=== PATIENT | female | born 1980 | race Caucasian/White ===

== ENCOUNTER 2022-02-16 23:08 | Observation (INO) ==
[2022-02-16] MEDS ORDERED: fentaNYL citrate 100 MCG/2 ML VIAL IV STA (23:25)
--- NOTE | 2022-02-16 23:31 | Emergency Department Note ---
History of Present Illness General Chief complaint: Chest Pain Stated complaint: CHEST TIGHTNESS Time Seen by Provider: 02/16/22 23:17 History of Present Illness Maximum Pain Intensity: 8 41-year-old female presents emergency department with an onset of chest pain that started at 10 PM this evening while she was doing an activity with her son. She states that she had substernal chest pressure that was nonradiating with associated shortness of breath dizziness and nausea. Patient states that she is under a lot of stress due to an illness with her . Patient does not know whether this was anxiety or panic attack however she was given aspirin 324 mg to sublingual nitro and Zofran by EMS prior to arrival. She states that she still has heaviness to the chest that is nonradiating. There are no other mitigating or alleviating factors. Patient has no prior history of cardiac disease. Home Medications Medication Instructions Recorded Confirmed Type amlodipine 10 mg tablet 10 mg PO DAILY 30 Days #30 tab 01/26/21 02/17/22 Rx hydrochlorothiazide 12.5 mg tablet 12.5 mg PO DAILY 30 Days #30 tab 01/26/21 02/17/22 Rx hydroxyzine pamoate 25 mg capsule 25 mg PO TID PRN 30 Days #90 cap 01/26/2101/21 Rx losartan 50 mg tablet 75 mg PO DAILY 30 Days #45 tab 01/26/21 02/17/22 Rx pen needle, diabetic 29 gauge x 01/26/21 02/17/22 History 1/2" (BD Ultra-Fine Original Pen Needle) simvastatin 20 mg tablet 20 mg PO HS 30 Days #30 tab 01/26/21 02/17/22 Rx liothyronine 5 mcg tablet 5 mcg PO DAILY tab 05/25/21 02/17/22 History omeprazole 40 mg capsule,delayed 40 mg PO DAILY 05/25/21 02/17/22 History release gabapentin 100 mg capsule 100 mg PO DAILY 05/30/21 02/17/22 History metformin 500 mg tablet,extended 1,000 mg PO BID tab 05/30/21 02/17/22 History release 24 hr acetone (urine) test (Ketostix) #25 ea 06/20/21 02/17/22 Rx levothyroxine 200 mcg tablet 400 mcg PO DAILYBB 30 Days #60 tab 10/22/21 02/17/22 Rx MDD 400mcg insulin aspart U-100 100 unit/mL 15 - 30 unit SUBCUT TIDM 02/17/22 02/17/22 History (3 mL) subcutaneous pen insulin glargine 100 unit/mL (3 50 unit SUBCUT PM 02/17/22 02/17/22 History mL) subcutaneous pen (Lantus Solostar U-100 Insulin) Allergies Allergy/AdvReac Type Severity Reaction Status Date / Time No Known Allergies Allergy Verified 02/17/22 00:56 Past Med/Surg History Medical History COVID-19 Diabetes type 1, uncontrolled Dyslipidemia Hx of thyroid cancer Hypertension Hypothyroidism, postablative Obesity Vitamin D deficiency Surgical History History of cholecystectomy History of hysterectomy History of thyroid surgery Family History Grandmother (Maternal) Emphysema of lung Myocardial infarction Hypertension Malignant carcinoid tumor of lung Father Hypertension Diabetes Type II Graves disease Social History Smoking Status: Never smoker Hx Alcohol Use: Yes Alcohol type: beer and wine Alcohol Intake Frequency Comment: 1-2 times per year Preferred Language: Mexican Feels Safe at Home: Yes Review of Systems A total of 10 systems reviewed and were otherwise negative Constitutional: no fever Respiratory: no cough Cardiovascular: + chest pain Psychiatric: + anxiety Physical Exam Vital Signs Vital Signs - 24 hr 02/16/22 23:17 02/16/22 23:39 Temperature 36.8 C Temperature Source Oral Pulse Rate 80 Respiratory Rate 18 20 Respiratory Depth Normal Normal Blood Pressure 152/99 H Blood Pressure [Left Arm] 152/99 H Blood Pressure Mean 116 Blood Pressure Mean [Left Arm] 116 Blood Pressure Position [Left Arm] Sitting Pulse Oximetry 93 100 Oxygen Delivery Method Room Air Room Air Sepsis Recent Fever Within 48 Hours No Sepsis New/Unexplained Change in Mental Status N/A Sepsis Action Taken by Nursing No Action Required VITAL SIGNS - Vital signs and nursing notes were reviewed. GENERAL - No acute distress. Communicates well with provider and answers questions appropriately. SKIN - Without rashes. HEAD - NC/AT. EYES - PERRL with EOMI bilaterally. Sclera anicteric. Palpebral conjunctiva pink and moist with no injection noted. EARS - No deformities of external structures noted on gross examination bilaterally. NOSE - Midline and without cyanosis. No epistaxis or purulent drainage noted. Septum midline without deviation or septal hematoma noted. MOUTH/OROPHARYNX - Without perioral cyanosis. NECK - Neck with FROM. LUNGS - Chest wall symmetric without accessory muscle use, intercostals retractions, or central cyanosis. Normal vesicular breath sounds CTA B/L. No wheezes, rales, or rhonchi appreciated. CARDIAC - RRR with S1/S2. No murmur, rubs, or gallops appreciated. ABDOMEN - Abdominal contour soft without pulsations or visible masses. Musk: +5/5 strength noted in UE/LE bilaterally. Calves are nontender bilaterally NEUROLOGIC - Cranial nerves II through XII grossly intact. PSYCH - A&Ox3 and cooperates fully with examiner. Pt is very pleasant and interacts well with examiner. Course Reevaluation(s) Reevaluation #1: Repeat examination patient has no current chest pain; discussed the evaluation with the patient at bedside Time: 00:23 Administered Medications Discontinued Medications Fentanyl Citrate (Fentanyl Citrate 100 Mcg/2 Ml Vial) 25 mcg IV NOW STA Stop: 02/16/22 23:26 Last Admin: 02/16/22 23:32 Dose: 25 mcg Documented by: [id number] Medical Decision Making Medical Records Attestation: I reviewed the patient's medical records. Laboratory Data Attestation: I reviewed the patient's lab results. Result diagrams: 02/16/22 23:25 02/16/22 23:25 Lab Results 02/16/22 02/16/22 02/16/22 Range/Units 23:25 23:25 23:25 WBC 4.98 (4.8-10.8) K/uL RBC 4.65 (4.2-5.4) M/uL Hgb 13.5 (12.0-16.0) g/dL Hct 39.2 (37-47) % MCV 84.3 (80-100) fL MCH 29.0 (25-34) pg MCHC 34.4 (32-36) g/dL RDW Std Deviation 44.9 (36.4-46.3) fL RDW Coeff of Emiliano 14.6 H (11.5-14.5) % Plt Count 71 L (130-400) K/uL MPV 10.9 H (7.4-10.4) fL Immature Gran % (Auto) 0.2 % Neut % (Auto) 61.5 % Lymph % (Auto) 28.7 % [place] % (Auto) 5.2 % Eos % (Auto) 3.8 % Baso % (Auto) 0.6 % Neut # (Auto) 3.06 (1.4-6.5) K/uL Lymph # (Auto) 1.43 (1.2-3.4) K/uL [place] # (Auto) 0.26 (0.11-0.59) K/uL Eos # (Auto) 0.19 (0-0.5) K/uL Baso # (Auto) 0.03 (0-0.2) K/uL Immature Gran # (Auto) 0.01 (0.00-0.02) K/uL D-Dimer 250 (0-500) ug/L FEU Sodium 132 L (136-145) mmol/L Potassium 3.9 (3.5-5.1) mmol/L Chloride 98 (98-107) mmol/L Carbon Dioxide 28 (21-32) mmol/L Anion Gap 6 (3-11) BUN 11 (6-23) mg/dl Creatinine 0.62 (0.6-1.2) mg/dl Est Cr Clr Drug Dosing 133.7 ml/min Est GFR ( Amer) 131.6 ml/min Est GFR (Non-Af Amer) 113.6 ml/min BUN/Creatinine Ratio 17.7 (10-20) Glucose 423 H* (70-99(Fasting)) mg/dl Calcium 9.3 (8.5-10.1) mg/dl Total Bilirubin 0.5 (0.2-1.0) mg/dl AST 45 H (13-39) U/L ALT 44 (7-52) U/L Alkaline Phosphatase 141 H (34-104) U/L Troponin I High Sens 5.2 (0-14) pg/ml Total Protein 7.4 (6.0-8.3) gm/dl Albumin 3.7 (3.4-5.0) gm/dl Globulin 3.7 (2.5-4.0) gm/dl Albumin/Globulin Ratio 1.0 (0.9-2) Imaging Data Attestation: I personally reviewed and interpreted this imaging study as follows: My Impression: Chest x-ray interpreted by me poor inspiratory effort cardiomegaly no obvious infiltrate or pneumothorax ECG Data Attestation: I personally reviewed and interpreted this ECG as follows: Additional Comments: EKG interpreted by me sinus rhythm first-degree AV block rate of 75 LVH is present there is no obvious ST segment elevation or depression normal axis MDM Narrative Medical decision making differential diagnosis angina unstable angina acute [place] anxiety musculoskeletal chest pain GERD; plan is to check cardiac evaluation Impression & Plan Chest pain, Hypertension, Hyperglycemia Discharge Plan Visit Data Chief Complaint: Chest Pain Stated Complaint: CHEST TIGHTNESS ED Provider: Rashid Monet Discharge Problem: Chest pain, Hypertension, Hyperglycemia Patient Disposition: Being Evaluated by Hospitalist Forms Stand Alone Forms: My [facility] Prescriptions Prescriptions: No Action levothyroxine 200 mcg tablet 400 mcg PO DAILYBB MDD 400mcg 30 Days Qty: 60 RF: 2 liothyronine 5 mcg tablet 5 mcg PO DAILY RF: 0 omeprazole 40 mg capsule,delayed release(DR/EC) 40 mg PO DAILY RF: 0 metformin 500 mg tablet extended release 24 hr 1,000 mg PO BID RF: 0 (DME) Ketostix Strip See Rx Instructions miscellaneous .MEDSUPPLY Qty: 25 RF: 5 gabapentin 100 mg capsule 100 mg PO DAILY RF: 0 losartan 50 mg Tablet 75 mg PO DAILY 30 Days Qty: 45 RF: 0 amlodipine 10 mg Tablet 10 mg PO DAILY 30 Days Qty: 30 RF: 0 simvastatin 20 mg Tablet 20 mg PO HS 30 Days Qty: 30 RF: 0 hydroxyzine pamoate 25 mg Capsule 25 mg PO TID PRN (Reason: Anxiety) 30 Days Qty: 90 RF: 0 hydrochlorothiazide 12.5 mg Tablet 12.5 mg PO DAILY 30 Days Qty: 30 RF: 0 (DME) pen needle, diabetic [BD Ultra-Fine Orig Pen Needle] 29 gauge x 1/2" Needle MISCELLANEOUS RF: 0 insulin aspart U-100 100 unit/mL (3 mL) insulin pen 15 - 30 unit subcut TIDM RF: 0 Lantus Solostar U-100 Insulin 100 unit/mL (3 mL) insulin pen 50 unit SUBCUT PM RF: 0 Referrals Referrals: Romina Hardwick CRNP [Primary Care Provider] - Discharge Problem: Chest pain Qualifiers: Chest pain type: precordial pain Qualified Code(s): R07.2 - Precordial pain Hypertension Qualifiers: Hypertension type: primary hypertension Qualified Code(s): I10 - Essential (primary) hypertension
[2022-02-16 23:48] LABS: D Dimer 250 ug/L FEU (0-500)
[2022-02-16 23:55] LABS: Hematocrit (blood only) 39.2 % (37-47); Hemoglobin 13.5 g/dL (12.0-16.0); Mean Corpuscular Hgb Conc 34.4 g/dL (32-36); Mean Corpuscular Volume 84.3 fL (80-100); Mean Platelet Volume 10.9 fL (7.4-10.4); Platelet Count 71 K/uL (130-400); RDW Coefficient of Variation 14.6 % (11.5-14.5); RDW Standard Deviation 44.9 fL (36.4-46.3); Red Blood Count 4.65 M/uL (4.2-5.4); White Blood Count 4.98 K/uL (4.8-10.8)
[2022-02-17] LABS: Basophils # (auto) 0.03 K/uL (0-0.2); Basophils % (auto) 0.6 %; Eosinophils # (auto) 0.19 K/uL (0-0.5); Eosinophils % (auto) 3.8 %; Immature Granulocytes # (auto) 0.01 K/uL (0.00-0.02); Immature Granulocytes % (auto) 0.2 %; Lymphocytes # (auto) 1.43 K/uL (1.2-3.4); Lymphocytes % (auto) 28.7 %; Monocytes # (auto) 0.26 K/uL (0.11-0.59); Monocytes % (auto) 5.2 %; Neutrophils # (auto) 3.06 K/uL (1.4-6.5); Neutrophils % (auto) 61.5 %
[2022-02-17 00:05] LABS: Albumin Level 3.7 gm/dl (3.4-5.0); BUN Creatinine Ratio 17.7 (10-20); Bilirubin,Total 0.5 mg/dl (0.2-1.0); Calcium 9.3 mg/dl (8.5-10.1); Creatinine Clr Calc Pharmacy 133.7 ml/min; Est GFR (African American) 131.6 ml/min; Est GFR (Non-African American) 113.6 ml/min; Globulin 3.7 gm/dl (2.5-4.0); Potassium 3.9 mmol/L (3.5-5.1); Total Protein 7.4 gm/dl (6.0-8.3); Troponin I High Sensitivity 5.2 pg/ml (0-14)
--- NOTE | 2022-02-17 00:35 | History & Physical Report ---
Date of Service February 17, 2022 Assessment & Plan (1) Chest pain: Plan: Sophie Arcos is a 41yo female with PMHx significant for T1DM (A1c 9.3 in 05/2021), hypothyroidism and h/o thyroid cancer (s/p thyroidectomy in 2015, on T4/T3), HTN, dyslipidemia and vitamin D deficiency who presented to [facility] ED on 02/17 for chest pain. Chest Pain Typical angina symptoms with physical activity. EKG without ST/T changes and initial hsTroponin negative at ~23:00. Patient has multiple comorbidities placing her at risk for CAD/ACS but given her increased anxiety and panic attacks recently, chest pain may also be due to anxiety. - will trend hsTroponin again with AM labs - ordered stress TTE for AM as well - PRN Nitro/EKG for chest pain Thrombocytopenia Plts 71 in ED - stable from previous labs in 2020. In this chronically obese patient with uncontrolled Diabetes, fatty liver disease is likely. - ordered US liver - ordered peripheral smear and PT/PTT/INR as well - trend CBC again in AM to confirm Hyponatremia Na 132, without previous h/o HypoNa. Appears euvolemic on exam. - US liver as stated above - trend in AM - would recommend further hyponatremia w/u if remains low Chronic Medical Problems T1DM: A1c 9.3 in 05/2021, managed by [facility]. Check A1c in AM. Hold Metformin. SSI and basal bolus while hospitalized. Hypothyroidism: s/p thyroidectomy in 2015 for cancer. F/w [facility]. Continue home T4 and T3. Neuropathy: continue home Gabapentin HTN: continue home Amlodipine, HCTZ, Losartan Dyslipidemia: continue home Simvastatin GERD: Protonix per hospital formulary FEN/GI: NPO for stress echo DVT Prophylaxis: Lovenox Code Status: full code Disposition: med/tele (2) Thrombocytopenia: (3) Obesity: (4) Diabetes type 1, uncontrolled: (5) Hypothyroidism, postablative: (6) Hx of thyroid cancer: (7) Hypertension: (8) Dyslipidemia: (9) Vitamin D deficiency: History of Present Illness Chief Complaint: chest pain Primary Care Provider: Romina Hardwick Sophie Arcos is a 41yo female with PMHx significant for T1DM (A1c 9.3 in 05/2021), hypothyroidism and h/o thyroid cancer (s/p thyroidectomy in 2016, on T4/T3), HTN, dyslipidemia and vitamin D deficiency who presented to [facility] ED on 02/17 for acute-onset substernal chest pain that started at ~10pm on 02/16 during physical activity, with associated SOB, dizziness and nausea. Patient was given Aspirin 324mg and sublingual nitro x2 as well as Zofran by EMS prior to arrival, with improvement in chest pain although it still remains. No previous OR, chest pain, or heart disease. Patient does report being more str essed recently due to 's illness. In the ED the patient was mildly hypertensive 152/99 but otherwise hemodynamically stable. hsTroponin was 5.2 at 23:25. EKG without ST/T changes and with chronic 1st degree AV block. D-dimer 250. Otherwise, labs significant for plts 71 (chronic), Na 132, BSG 423, AST 45, ALP 141. CXR without acute cardiopulmonary process. In the ED patient received Fentanyl 25mcg IV x1. Currently chest pain is improved but still [id number]. Allergies Allergy/AdvReac Type Severity Reaction Status Date / Time No Known Allergies Allergy Verified 02/17/22 00:56 Home Medications Medication Instructions Recorded Confirmed Type amlodipine 10 mg tablet 10 mg PO DAILY 30 Days #30 tab 01/26/21 02/17/22 Rx hydrochlorothiazide 12.5 mg tablet 12.5 mg PO DAILY 30 Days #30 tab 01/26/21 02/17/22 Rx hydroxyzine pamoate 25 mg capsule 25 mg PO TID PRN 30 Days #90 cap 01/26/21 02/17/22 Rx losartan 50 mg tablet 75 mg PO DAILY 30 Days #45 tab 01/26/21 02/17/22 Rx pen needle, diabetic 29 gauge x 01/26/21 02/17/22 History 1/2" (BD Ultra-Fine Original Pen Needle) simvastatin 20 mg tablet 20 mg PO HS 30 Days #30 tab 01/26/21 02/17/22 Rx omeprazole 40 mg capsule,delayed 40 mg PO DAILY 05/25/21 02/17/22 History release gabapentin 100 mg capsule 100 mg PO DAILY 05/30/21 02/17/22 History metformin 500 mg tablet,extended 1,000 mg PO BID tab 05/30/21 02/17/22 History release 24 hr acetone (urine) test (Ketostix) #25 ea 06/20/21 02/17/22 Rx levothyroxine 200 mcg tablet 400 mcg PO DAILYBB 30 Days #60 tab 10/22/21 02/17/22 Rx MDD 400mcg aspirin 81 mg tablet,delayed 81 mg PO DAILY #30 tab 02/17/22 Rx release insulin aspart U-100 100 unit/mL 15 - 30 unit SUBCUT TIDM 02/17/22 02/17/22 History (3 mL) subcutaneous pen insulin glargine 100 unit/mL (3 50 unit SUBCUT PM 02/17/22 02/17/22 History mL) subcutaneous pen (Lantus Solostar U-100 Insulin) Past Med/Surg History Medical History COVID-19 Diabetes type 1, uncontrolled Dyslipidemia Hx of thyroid cancer Hypertension Hypothyroidism, postablative Obesity Vitamin D deficiency Surgical History History of cholecystectomy History of hysterectomy History of thyroid surgery Family History Grandmother (Maternal) Emphysema of lung Myocardial infarction Hypertension Malignant carcinoid tumor of lung Father Hypertension Diabetes Type II Graves disease Social History Smoking Status: Never smoker Second Hand Exposure: No; Do You Dip or Chew Tobacco: No; Hx Alcohol Use: Yes Alcohol type: wine Alcohol Intake Frequency Comment: 1-2 times per year Hx Substance Use: No Preferred Language: Honduran Communication Ability: Effective Power Press Operator Required: No Beliefs That Will Affect Care: None Current Living Situation: Spouse Feels Safe at Home: Yes Safety Concerns: Feels Safe At This Time Assistive Devices: Glasses Review of Systems Review of Systems: All systems reviewed & are unremarkable except as noted in HPI & below Physical Exam Physical Exam: General: A&Ox3. NAD. Cooperative. Obese. HEENT: Atraumatic, normocephalic. Pulm: CTAB A&P. -wheezes, -rales, -rhonchi. Symmetrical chest rise. No increase work of breathing. No respiratory distress. Cardiac: RRR, -mrg. Radial pulses intact and symmetrical. No LE edema. Chest: no pain to palpation of sternum Abdominal: soft, non-tender, non-distended, BS x 4 Skin: warm, dry, no rash Results & Data Results & Data ([facility]) Vital Signs (Past 12 Hours) Vital Signs Temp Pulse Resp BP BP Pulse Ox 02/16/22 23:39 20 152/99 H 100 02/16/22 23:17 36.8 C 80 18 152/99 H 93 Supervising Physician Co-Signing Physician Notes Attending addendum: I have physically seen this patient, have supervised the medical residents activities, and agree with the H&P unless as otherwise noted. Assessment and Plan: Chest pain/hypertension The patient will be admitted to telemetry for serial cardiac enzymes, serial EKG's, cardiac rhythm monitoring and a 2-D echocardiogram with Dopplers. Stress echocardiogram if no symptoms and laboratories normal overnight Aspirin 81 mg every morning Continue amlodipine, HCTZ and losartan Serial BMP and magnesium levels Diabetes mellitus- Hold metformin Continue Lantus insulin Placed on Accu-Cheks before meals and at bedtime with NovoLog coverage per scale Thrombocytopenia- Platelets 71 on admission, stable from previous Serial CBC Order peripheral smear and coags Remaining orders and notations as noted Resident Activity Tracking Resident Involvement: Resident Care Provided Care Provided: Adult Hospital Medicine (1) Chest pain Chest pain type: precordial pain Qualified Code(s): R07.2 - Precordial pain (2) Hypertension Hypertension type: primary hypertension Qualified Code(s): I10 - Essential (primary) hypertension
[2022-02-17] MEDS ORDERED: LORazepam 0.5 MG TAB PO STA (03:29)
[2022-02-17] MEDS ORDERED: GLUCOSE 40% GEL 15 GM TUBE PO PRN (04:10)
[2022-02-17] MEDS ORDERED: GLUCAGON FOR INJ 1 MG VIAL SQ PRN (04:10)
[2022-02-17] MEDS ORDERED: ONDANSETRON INJ 2 MG/ML 2 ML VIAL IV PRN (04:10)
[2022-02-17] MEDS ORDERED: ACETAMINOPHEN 325 MG TAB PO PRN (04:10)
[2022-02-17] MEDS ORDERED: GLUCOSE 10 TABS/TUBE PO PRN (04:10)
[2022-02-17] MEDS ORDERED: CARBOHYDRATES FOR HYPOGLYCEMIA PO PRN (04:10)
[2022-02-17] MEDS ORDERED: DEXTROSE 50% 50 ML SYRINGE IV PRN (04:10)
[2022-02-17] MEDS ORDERED: NITROGLYCERIN SL 0.4 MG/TAB TAB SL PRN (04:10)
[2022-02-17] MEDS ORDERED: hydrOXYzine HCl 25 MG TAB PO PRN (04:10)
[2022-02-17 04:36] LABS: Hematocrit (blood only) 40.1 % (37-47); Hemoglobin 13.7 g/dL (12.0-16.0); Mean Corpuscular Hemoglobin 28.3 pg (25-34); Mean Corpuscular Hgb Conc 34.2 g/dL (32-36); Mean Corpuscular Volume 82.9 fL (80-100); RDW Coefficient of Variation 14.8 % (11.5-14.5); RDW Standard Deviation 44.8 fL (36.4-46.3); Red Blood Count 4.84 M/uL (4.2-5.4); White Blood Count 5.71 K/uL (4.8-10.8)
[2022-02-17 04:40] LABS: Mean Platelet Volume 10.3 fL (7.4-10.4); Platelet Count 73 K/uL (130-400)
[2022-02-17 04:45] LABS: INR 1.1 (0.9-1.1); Partial Thromboplastin Time 28.2 Seconds (21.0-31.0); Prothrombin Time 11.7 Seconds (9.0-12.0)
[2022-02-17 04:52] LABS: Basophils # (auto) 0.03 K/uL (0-0.2); Basophils % (auto) 0.5 %; Eosinophils # (auto) 0.22 K/uL (0-0.5); Eosinophils % (auto) 3.9 %; Lymphocytes % (auto) 26.3 %; Monocytes # (auto) 0.31 K/uL (0.11-0.59); Monocytes % (auto) 5.4 %; Neutrophils # (auto) 3.65 K/uL (1.4-6.5); Neutrophils % (auto) 63.9 %
[2022-02-17 05:03] LABS: Albumin Level 3.7 gm/dl (3.4-5.0); BUN Creatinine Ratio 17.9 (10-20); Bilirubin,Total 0.5 mg/dl (0.2-1.0); Calcium 9.1 mg/dl (8.5-10.1); Creatinine Clr Calc Pharmacy 194.1 ml/min; Est GFR (African American) 136.1 ml/min; Est GFR (Non-African American) 117.5 ml/min; Globulin 3.6 gm/dl (2.5-4.0); Potassium 3.8 mmol/L (3.5-5.1); Total Protein 7.3 gm/dl (6.0-8.3); Troponin I High Sensitivity 5.1 pg/ml (0-14)
[2022-02-17] MEDS ORDERED: Nursing to Pharmacy Communication SCH ×2 (05:15→05:30)
[2022-02-17] MEDS ORDERED: INSULIN ASPART PER UNIT SC ONE (05:15)
[2022-02-17] MEDS: MAGNESIUM SULFATE / D5W 1 GM/100 ML BAG IV SCH ×3 (05:34→10:06)
[2022-02-17] MEDS ORDERED: LEVOTHYROXINE SODIUM 200 MCG TABLET PO SCH (06:30)
--- NOTE | 2022-02-17 07:05 | Ultrasound Report ---
ULTRASOUND RIGHT UPPER QUADRANT ABDOMEN CLINICAL HISTORY: Thrombocytopenia. Hyponatremia. COMPARISON STUDY: No priors. TECHNIQUE: Real-time, grayscale, and color flow sonography of the right upper quadrant of the abdomen was performed. Images are reviewed in the transverse and longitudinal planes. The Examination is deg raded by large body habitus FINDINGS: Liver: The liver is enlarged and heterogeneous in echotexture. There is nodularity of the hepatic chelsea face contour. There is no intrahepatic biliary ductal dilatation. The main portal vein is patent. Gallbladder: The gallbladder is surgically absent. The common bile duct measures up to 0.7 cm in diam eter. Pancreas: Visualized portions of the pancreatic head and body are normal in appearance. The splenic v ein is patent. Right kidney: Survey images of the right kidney demonstrate normal size and echotexture. There is no hydronephrosis. Ascites: None. IMPRESSION: 1. No acute sonographic abnormality is identified in the right upper quadrant. 2. The liver is enlarged, heterogeneous, and cirrhotic in morphology. 3. Status post cholecystectomy. ACT 112: Negative or not required by law. Electronically signed by: Shadi Henley M.D. 02/17/2022 7:04 AM
[2022-02-17] MEDS ORDERED: INSULIN ASPART PER UNIT SC SCH ×2 (07:30→08:00)
--- NOTE | 2022-02-17 08:04 | XRay Report ---
XR chest 1V portable HISTORY: Atypical Chest Pain COMPARISON: Chest 01/25/2021. FINDINGS: There are low lung volumes. No pleural effusions. No pneumothorax. No new focal lung consol idations to suggest pneumonia. No evidence for pulmonary edema. The cardiac silhouette remains mildly enlarged. This could be due to the low lung volumes. IMPRESSION: Low lung volumes with mild enlargement of the cardiac silhouette. This is similar to the prior study. ACT 112: Negative or not required by law. Electronically signed by: Bruce Maxwell M.D. 02/17/2022 8:03 AM
[2022-02-17] MEDS ORDERED: LOSARTAN POTASSIUM 25 MG TAB PO SCH (09:00)
[2022-02-17] MEDS ORDERED: GABAPENTIN 100 MG CAP PO SCH (09:00)
[2022-02-17] MEDS ORDERED: hydroCHLOROthiazide 25 MG TAB PO SCH (09:00)
[2022-02-17] MEDS ORDERED: INSULIN GLARGINE SOLOSTAR 100 UNITS/ML 3 ML PEN SC SCH (09:00)
[2022-02-17] MEDS ORDERED: LIOTHYRONINE SODIUM 5 MCG TAB PO SCH (09:00)
[2022-02-17] MEDS ORDERED: PANTOprazole 40 MG TAB PO SCH (09:00)
[2022-02-17] MEDS ORDERED: amLODIPine BESYLATE 5 MG TAB PO SCH (09:00)
[2022-02-17] MEDS ORDERED: ENOXAPARIN INJ 40 MG/0.4 ML SYR SQ SCH (09:00)
[2022-02-17 09:30] LABS: Thyroid Stimulating Hormone 41.482 uIu/ml (0.300-4.500)
[2022-02-17 10:03] LABS: T4 Free Thyroxine 0.66 ng/dl (0.61-1.60)
--- NOTE | 2022-02-17 10:20 | Discharge Summary ---
Date of Service February 17, 2022 Admission HPI Per Admitting Provider Spohie Arcos is a 41yo female with PMHx significant for T1DM (A1c 9.3 in 05/2021), hypothyroidism and h/o thyroid cancer (s/p thyroidectomy in 2016, on T4/T3), HTN, dyslipidemia and vitamin D deficiency who presented to [facility] ED on 02/17 for acute-onset substernal chest pain that started at ~10pm on 02/16 during physical activity, with associated SOB, dizziness and nausea. Patient was given Aspirin 324mg and sublingual nitro x2 as well as Zofran by EMS prior to arrival, with improvement in chest pain although it still remains. No previous AZ, chest pain, or heart disease. Patient does report being more stressed recently due to 's illness. In the ED the patient was mildly hypertensive 152/99 but otherwise hemodynamically stable. hsTroponin was 5.2 at 23:25. EKG without ST/T changes and with chronic 1st degree AV block. D-dimer 250. Otherwise, labs significant for plts 71 (chronic), Na 132, BSG 423, AST 45, ALP 141. CXR without acute cardiopulmonary process. In the ED patient received Fentanyl 25mcg IV x1. Currently chest pain is improved but still [id number]. Principal Diagnosis Atypical chest pain Discharge Exam Constitutional well developed and + morbidly obese; no acute distress Respiratory normal respiratory effort, lungs clear to auscultation Cardiovascular RRR, no murmur, no edema Gastrointestinal (Abdomen) normal bowel sounds, soft, nontender, no hepatosplenomegaly Psychiatric A+Ox3, euthymic affect Discharge Data Allergies Allergy/AdvReac Type Severity Reaction Status Date / Time No Known Allergies Allergy Verified 02/17/22 00:56 Consultations 02/17/22 00:33 ED Decision to Admit Stat Ordered Studies 02/17/22 01:03 US liver Urgent IMPRESSION: 1. No acute sonographic abnormality is identified in the right upper quadrant. 2. The liver is enlarged, heterogeneous, and cirrhotic in morphology. 3. Status post cholecystectomy. Hospital Course (1) Chest pain: Sophie Arcos is a 41 year old observed at [facility] on February 17, 2022 due to chest pain. Serial high sensitivity troponins were negative therefore this was not a heart attack. Recommended staying for cardiac stress echocardiogram but you wished to be discharged home at this time. Given severity and duration of pain without a elevated troponin lower suspicion this is coming from your heart therefore recommend performing the stress echo cardiogram as outpatient and taking an aspirin daily until the result of this. Please return if you have recurrent chest pain. You were also noted to have stable chronic thrombocytopenia. There are many possible causes for this. Basic workup with peripheral blood smear, B12 and folate levels pending on discharge. This may also be due to you liver dysfunction below. Your liver enzymes were also noted to be elevated. Viral hepatitis panel is pending on discharge. Please follow up with your primary care provider to discuss referral to gastroenterology for ongoing workup for this. Your TSH is 41, free T4 pending on discharge. Please call the endocrinology office on Friday for ongoing advice regarding you levothyroxine. I understand you are under a lot of stress related to your husbands health recently. Please remember to take the time to care for yourself so you are able to care for others. (2) Thrombocytopenia: (3) Hyperglycemia: (4) Dyslipidemia: (5) Hypothyroidism, postablative: (6) Vitamin D deficiency: (7) Diabetes type 1, uncontrolled: (8) Hypertension: Total Time Total Time Spent Total Time Spent (In Minutes): 35 Discharge Plan Discharge Items Patient Disposition: Home - Self-Care Reason For Visit: CHEST PAIN Discharge Diagnosis: Atypical chest pain Activity: Resume your previous activity Non-emergency contact: Primary Care Provider Call non-emergency contact if: you have any medication questions and your symptoms worsen Follow-up/Referrals: Romina Hardwick CRNP [Primary Care Provider] - Diet: Carb Count or DM1 and Heart Healthy Ambulatory Orders: CA echo stress exercise (Routine) Timeframe: 1 Week Location: Determined by Patient Ordered By: Clyde Mooney Attending Provider Instructions: You were observed at [facility] on February 17, 2022 due to chest pain. Serial high sensitivity troponins were negative therefore this was not a heart attack. Recommended staying for cardiac stress echocardiogram but you wished to be discharged home at this time. Given severity and duration of pain without a elevated troponin lower suspicion this is coming from your heart therefore recommend performing the stress echo cardiogram as outpatient and taking an aspirin daily until the result of this. Please return if you have recurrent chest pain. You were also noted to have stable chronic thrombocytopenia. There are many possible causes for this. Basic workup with peripheral blood smear, B12 and folate levels pending on discharge. This may also be due to you liver dysfunction below. Your liver enzymes were also noted to be elevated. Viral hepatitis panel is pending on discharge. Please follow up with your primary care provider to discuss referral to gastroenterology for ongoing workup for this. Your TSH is 41, free T4 pending on discharge. Please call the endocrinology office on Friday for ongoing advice regarding you levothyroxine. I understand you are under a lot of stress related to your husbands health recently. Please remember to take the time to care for yourself so you are able to care for others. Pending Studies at Discharge: Yes (free T4, B12, folate, hepatitis panel, peripheral blood smear) Stand-Alone Forms: [facility], Smoking Cessation Medications and DC Order Prescriptions: New aspirin 81 mg tablet,delayed release (DR/EC) 81 mg PO DAILY Qty: 30 RF: 0 Continued levothyroxine 200 mcg tablet 400 mcg PO DAILYBB MDD 400mcg 30 Days Qty: 60 RF: 2 omeprazole 40 mg capsule,delayed release(DR/EC) 40 mg PO DAILY RF: 0 metformin 500 mg tablet extended release 24 hr 1,000 mg PO BID RF: 0 (DME) Ketostix Strip See Rx Instructions miscellaneous .MEDSUPPLY Qty: 25 RF: 5 gabapentin 100 mg capsule 100 mg PO DAILY RF: 0 losartan 50 mg Tablet 75 mg PO DAILY 30 Days Qty: 45 RF: 0 amlodipine 10 mg Tablet 10 mg PO DAILY 30 Days Qty: 30 RF: 0 simvastatin 20 mg Tablet 20 mg PO HS 30 Days Qty: 30 RF: 0 hydroxyzine pamoate 25 mg Capsule 25 mg PO TID PRN (Reason: Anxiety) 30 Days Qty: 90 RF: 0 hydrochlorothiazide 12.5 mg Tablet 12.5 mg PO DAILY 30 Days Qty: 30 RF: 0 (DME) pen needle, diabetic [BD Ultra-Fine Orig Pen Needle] 29 gauge x 1/2" Needle MISCELLANEOUS RF: 0 insulin aspart U-100 100 unit/mL (3 mL) insulin pen 15 - 30 unit subcut TIDM RF: 0 Lantus Solostar U-100 Insulin 100 unit/mL (3 mL) insulin pen 50 unit SUBCUT PM RF: 0 Discharge Orders: Discharge Order (Routine); Ordered 02/17/22 Ordered By: Clyde Birmingham Admission Data Admit Date/Time: 02/17/22 01:03 Attending Provider: Clyde Birmingham Admit Provider: Oseas Dubois Primary Care Provider: Romina Hardwick Other Providers: Vince Meneses Coding Diagnoses Chest pain R07.2 Chest pain type: precordial pain Thrombocytopenia D69.6 Hyperglycemia R73.9 Dyslipidemia E78.5 Hypothyroidism, postablative E89.0 Vitamin D deficiency E55.9 Diabetes type 1, uncontrolled E10.65 Hypertension I10 Hypertension type: primary hypertension
[2022-02-17 10:23] LABS: Folate (Folic Acid) 18.96 ng/ml (>5.38)
--- NOTE | 2022-02-17 13:59 | Electrocardiogram Report ---
Test Reason : Blood Pressure : / mmHG Vent. Rate : 075 BPM Atrial Rate : 075 BPM P-R Int : 222 ms QRS Dur : 108 ms QT Int : 388 ms P-R-T Axes : 054 -09 031 degrees QTc Int : 433 ms Sinus rhythm with 1st degree A-V block Minimal voltage criteria for LVH, may be normal variant Borderline ECG When compared with ECG of 25-JAN-2021 15:22, No significant change was found Confirmed by Teofilo Pacheco ([id number]) on 02/17/2022 1:59:11 PM Referred By: REFERRED SELF Confirmed By:Teofilo Pacheco
[2022-02-17] MEDS ORDERED: SIMVASTATIN 20 MG TAB PO SCH (21:00)
--- NOTE | 2022-02-17 23:13 | Billing Data ---
Date of Service February 17, 2022 Coding Level of Care Code INT OBSERVATION CARE 70M LVL 3
[2022-02-18 08:11] LABS: Estimated Average Glucose 258 mg/dl; Hemoglobin A1C 10.6 % (4.5-5.6)
== END 2022-02-17 11:11 | disposition home or self-care (01) ==
LOC: 2N 23:08 → ED 23:08 → SUATTDRO 02-17 01:03 → 2N 02-17 04:10